=== PATIENT | female | born 1955 | race Caucasian/White ===

== ENCOUNTER → 2016-09-14 | Outpatient (CLI) | payer BC ==
[2016-09-14 08:57] LABS: CHLORIDE,CL 98 mmol/L (98-110); SODIUM,NA 133 mmol/L (136-146)
== END ==
LOC: MW.CHFP 07:48
PROVIDERS: ATTEND Student in an Organized Health Care Education/Training Program
DX: I10 Essential (primary) hypertension (principal); E78.5 Hyperlipidemia, unspecified; E11.9 Type 2 diabetes mellitus without complications; R30.0 Dysuria
CPT/HCPCS: 36415; 80053; 80061; 81001; 82044; 83036

== ENCOUNTER → 2016-09-16 | Outpatient (CLI) | payer BC ==
--- NOTE | 2016-09-19 14:09 | MY ---
EXAMINATION: Bilateral digital mammography utilizing CAD. HISTORY: Screening exam. Comparison is made to previous studies dated 02/14/2012, 01/20/2011, 03/02/20 07. FINDINGS: Bilateral fatty breast tissue. No suspicious calcifications, masses or architectural d istortions. No pathologic appearing lymph nodes, no abnormal skin thickening or nipple inversion. CAD highlighted regions appear normal at this time. IMPRESSION: BI-RADS category I - negative mammogram. Continued screening according to ACR-ACS gu idelines suggested. THE FALSE-NEGATIVE RATE OF MAMMOGRAM IS APPROXIMATELY 10%. MANAGEMENT OF A PALPABLE ABNORMALITY MUST BE BASED UPON CLINICAL GROUNDS. SENSITIVITY FOR DETECTION OF ABNORMALITIES IN DENSE BREASTS IS LOW. NOTE: A letter will be sent to the patient regarding findings. [facility] -- MARY Varner [phone] - FAX [phone]
== END ==
LOC: MW.MAM 13:11
PROVIDERS: ATTEND Student in an Organized Health Care Education/Training Program
DX: Z12.31 Encounter for screening mammogram for malignant neoplasm of breast (principal)
CPT/HCPCS: G0202; G0202-26